=== PATIENT | male | born 1965 | race Hispanic/Latino ===

== ENCOUNTER 2019-01-12 01:13 | Inpatient (IN) | payer OTHER ==
[~2019-01-12] VITALS: Ht 185.4 cm; Wt 94.5 kg
[2019-01-12] VITALS (13 sets, daily range): BP systolic 125–154; BP diastolic 73–87
--- NOTE | 2019-01-12 01:30 | NUR ---
PATIENT ARRIVED BY EMS ON STRETCHER. PATIENT DENIES ANY COMPLAINTS OF PAIN OR DISCOMFORT AT PRESENT. BABAK LAUGHLIN BOTTOMING ROOM INSPECTOR PAGED TO ADVISE OF PATIENT' ARRIVAL. PATIENT ORIENTATED TO ROOM AND CALL PAUL. PATIENT DENIES TAKING ANY HOME MEDICATIONS. PATIENT ADVISED OF NPO STATUS AND VERBALIZED UNDERSTANDING. PATIENT TO BE PREPPED FOR PROCEDURE 01/12/2019 0140-BABAK LAUGHLIN BOTTOMING ROOM INSPECTOR RETURNED CALL, NO ORDERS AT PRESENT, WILL COME TO SEE PATIENT
[2019-01-12] MEDS ORDERED: ONDANSETRON HCL 4 MG/2 ML VIAL IV PRN (03:00)
[2019-01-12] MEDS ORDERED: NITROGLYCERIN 1GM/1 INCH PACKET TD SCH (03:00)
[2019-01-12] MEDS ORDERED: MORPHINE SULFATE 4 MG/1ML SYG IV PRN (03:00)
[2019-01-12] MEDS ORDERED: ACETAMINOPHEN 325 MG TAB PO PRN ×2 (03:00)
[2019-01-12] MEDS ORDERED: NITROGLYCERIN 1GM/1 INCH PACKET TD ONE (03:09)
[2019-01-12 06:02] LABS: INR 1.02 (0.85-1.15); PARTIAL THROMBOPLASTIN TIME 33.8 SEC (26.3-35.5); PROTHROMBIN TIME 10.7 SEC (9.6-11.6)
[2019-01-12 06:14] LABS: ALBUMIN 3.5 g/dL (3.5-5.0); BILIRUBIN,TOTAL 0.4 mg/dL (0.2-1.0); TOTAL PROTEIN, SERUM 7.1 g/dL (6.0-8.3)
--- NOTE | 2019-01-12 06:21 | NUR ---
DR YUNG HERE, AWARE OF PATIENT CONSULT.
--- NOTE | 2019-01-12 06:22 | NUR ---
TROPONIN LEVEL 6.09 DR. MARTINEZ MOBILE PHONE SALESPERSON, REQUESTED CALL BACK.
[2019-01-12] MEDS ORDERED: SODIUM CHLORIDE 0.9% 500ML 500 ML IV SCH (06:40)
[2019-01-12 06:49] LABS: HEMATOCRIT 44.1 % (42-54); MEAN CORPUSCULAR HEMOGLOBIN 28.2 pg (27.0-33.0); MEAN CORPUSCULAR VOLUME 85.4 fL (79-99); PLATELET COUNT (AUTO) 232 K/uL (130-400); RED BLOOD CELL COUNT(AUTO) 5.16 MIL/uL (4.50-6.20); RED CELL DISTRIBUTION WIDTH 14.6 % (11.0-15.5); WHITE BLOOD COUNT (AUTO) 16.1 K/uL (4.8-10.8)
--- NOTE | 2019-01-12 06:54 | NUR ---
DR. MARTINEZ RETURNED CALL, INFORMED OF TROPONIN LEVEL, NO ORDERS RECEIVED AT THIS TIME.
--- NOTE | 2019-01-12 07:45 | NUR ---
AM ASSESSMENT PT LAYING IN BED, HOB ELEVATED 30 DEGREES, SPEAKING ON CELL PHONE W/DAUGHTER. A/O X 3. NO SOB. NO DISTRESS NOTED. DENIES CHEST PAIN OR DISCOMFORT. DENIES PALPITATIONS. TELE: SR 90s. DENIES N/V AND/OR DIARRHEA. NPO STATUS REINFORCED. PT TO HAVE LHC TO DAY BY DR CHILEL. LAISHA W/JIHAN. INSTRUCTED TO CALL FOR ASSISTANCE. CALL BEVERLY W/IN REACH.
[2019-01-12] MEDS ORDERED: BIVALIRUDIN 250 MG/VIAL IV ONE (08:44)
[2019-01-12] MEDS ORDERED: HEPARIN SODIUM 1000UNIT/ML 10ML VIAL ONE (08:44)
[2019-01-12] MEDS ORDERED: LIDOCAINE HCL 1% 20 ML VIAL ONE (08:44)
[2019-01-12] MEDS ORDERED: IOHEXOL-350 50ML VIAL IV ONE (08:45)
[2019-01-12] MEDS ORDERED: IOHEXOL 350 MG/ML 100ML INFUS..BTL IV ONE ×2 (08:45→10:03)
[2019-01-12] MEDS ORDERED: NITROGLYCERIN 5 MG/ML 10 ML VIAL IV ONE (08:45)
[2019-01-12] MEDS ORDERED: ASPIRIN 325 MG TABLET PO SCH ×2 (09:00)
[2019-01-12] MEDS ORDERED: FAMOTIDINE/PF 20 MG/2 ML VIAL IV SCH (09:00)
[2019-01-12] MEDS ORDERED: LIDOCAINE HCL 2% 20ML ONE (09:08)
[2019-01-12] MEDS ORDERED: TICAGRELOR 90 MG TABLET ONE (10:45)
[2019-01-12] MEDS ORDERED: ASPIRIN 325MG EC TAB 325 MG TABLET.DR PO ONE (10:45)
[2019-01-12] MEDS ORDERED: FENTANYL CITRATE PF 50 MCG/1 ML 2ML VIAL ONE (10:46)
[2019-01-12] MEDS ORDERED: SODIUM CHLORIDE 0.9% 1000ML 1,000 ML IV SCH (11:05)
[2019-01-12] MEDS ORDERED: LABETALOL 20 MG/4 ML DISP.SYRIN IV ONE (11:05)
[2019-01-12] MEDS ORDERED: NITROGLYCERIN 50 MG/D5% WATER 1 BOT IV PRN (11:15)
--- NOTE | 2019-01-12 11:55 | NUR ---
STATUS PT RECEIVED FROM CONGRESSIONAL REPRESENTATIVE VIA BED; S/P LHC W/STENT X [address] CHILEL[address] RT GROIN PER CLOSE; DSG DRY & INTACT. PUNCTURE SITE SIFT, NON-TENDER. NO BLEEDING, NO HEMATOMA NOTED. DENIES INCISIONAL PAIN. (+) STRONG BILATERAL PEDAL PULES. BLE PINK & WARM TO TOUCH. PT INFORMED TO MAINTAIN BEDREST X 2 HRS. BEDREST ORDER CLARIFIED W/DR CHILEL. BED @ LOWEST LEVEL. SIDE RAILS X 4. INSTRUCTED TO CALL FOR ASSISTANCE. CALL BEVERLY W/IN REACH.
[2019-01-12 12:22] LABS: AMPHET/METH SCREEN,URINE NEGATIVE (NEGATIVE); BARBITURATE SCREEN, URINE NEGATIVE (NEGATIVE); BENZODIAZEPINES SCREEN,URINE NEGATIVE (NEGATIVE); CANNABINOID SCREEN,URINE NEGATIVE (NEGATIVE); COCAINE SCREEN,URINE NEGATIVE (NEGATIVE); OPIATE SCREEN,URINE NEGATIVE (NEGATIVE); PHENCYCLIDINE SCREEN,URINE NEGATIVE (NEGATIVE)
[2019-01-12] MEDS: METOPROLOL TARTRATE 25 MG TAB PO SCH ×2 (13:28→22:11)
[2019-01-12] MEDS: NITROGLYCERIN 1GM/1 INCH PACKET TD SCH ×2 (13:29→22:10)
--- NOTE | 2019-01-12 14:00 | NUR ---
STATUS BEDREST COMPLETE. RT GROIN DSG DRY & INTACT. PUNCTURE SOFT, NON-TENDER. NO BLEEDING, NO HEMATOMA NOTED. (+) STRONG PEDAL PULSES BILATERALLY. BLE PINK & WARM TO TOUCH. PT ASSISTED TO SIT-UP IN BED. DENIES DIZZINESS AND OR LIGHT-HEADEDNESS. INSTRUCTED TO CALL FOR ASSISTANCE. CALL BEVERLY W/IN REACH.
[2019-01-12] MEDS ORDERED: WARFARIN SODIUM 2.5 MG TAB PO SCH (16:00)
--- NOTE | 2019-01-12 16:06 | NUR ---
DC PLAN VISITED WITH PATIENT. PATIENT LIVES WITH DTR AND AUNT. INDEPENDENT ABLE TO PERFORM ADL'S. PATIENT HAS NO SERVICES OR DME'S. FEELS SAFE TO RETURN HOME. BICYCLE ASSEMBLER FROM [facility]. Addendum: 01/12/19 at 1608 by NEYMAR RAGSDALE RN CM Amended: Links added.
[2019-01-12] MEDS ORDERED: ATORVASTATIN CALCIUM 10 MG TABLET PO SCH (21:00)
[2019-01-12] MEDS: TICAGRELOR 90 MG TABLET PO SCH (22:11)
--- NOTE | 2019-01-13 01:20 | NUR ---
PRODUCTION FLOATER CALLED BY CHIEF LIBRARIAN BRANCH TO CHECK PATIENT LEADS, PATIENT FOUND TO BE DIAPHORETIC, DENIES ANY COMPLAINTS OF PAIN OR DISCOMFORT. VITAL SIGNS NOTED IN COMPUTER. BLOOD SUGAR OBTAINED, RESULTED 117. CONTINUE SINUS RHYTHM, RATE 77. EKG OBTAINED, SHOWING NO CHANGES FROM PREVIOUS EKG. RT GROIN SITE CONTINUE TO APPEAR SOFT TO PALPATION. COMMERCIAL REAL ESTATE ATTORNEY AWARE OF PATIENT FINDINGS. 0130-CALLED PLACED TO MARKETING TRAFFIC MANAGER ON DUTY. 0135-BABAK LAUGHLIN MARKETING TRAFFIC MANAGER RETURNED CALL, INFORMED OF PATIENT FINDINGS, NO ORDERS RECEIVED AT THIS TIME.
[2019-01-13 01:35] VITALS: BP 131/67
[2019-01-13 03:48] VITALS: BP 137/57
[2019-01-13 04:04] LABS: HEMATOCRIT 41.8 % (42-54); MEAN CORPUSCULAR HEMOGLOBIN 28.3 pg (27.0-33.0); MEAN CORPUSCULAR HGB CONC 33.4 g/dL (32.0-36.0); MEAN CORPUSCULAR VOLUME 84.6 fL (79-99); PLATELET COUNT (AUTO) 216 K/uL (130-400); RED BLOOD CELL COUNT(AUTO) 4.94 MIL/uL (4.50-6.20); RED CELL DISTRIBUTION WIDTH 14.7 % (11.0-15.5); WHITE BLOOD COUNT (AUTO) 14.3 K/uL (4.8-10.8)
[2019-01-13 05:10] LABS: POTASSIUM 3.6 mmol/L (3.5-5.1)
[2019-01-13 05:22] LABS: TROPONIN I 5.11 ng/mL (0.00-0.06)
[2019-01-13] MEDS: NITROGLYCERIN 1GM/1 INCH PACKET TD SCH (05:50)
--- NOTE | 2019-01-13 07:30 | NUR ---
AM ASSESSMENT PT LAYING IN BED, HOB ELEVATED 30 DEGREES, RESTING. A/O X 3. NO SOB. NO DISTRESS NOTED. DENIES CHEST PAIN OR DISCOMFORT. DENIES PALPITATIONS. DENIES INCISIONAL PAIN. TELE: SR 70s. DENIES N/V AND/OR DIARRHEA. RT GROIN DSG DRY & INTACT. PUNCTURES SOFT, NON-TENDER. DSG REMOVED. GARY BLEEDING, NO HEMATOMA. (+) STRONG PEDAL PULSES BILATERALLY. BLE PINK & WARM TO TOUCH. UP AD FAROOQ. INSTRUCTED TO CALL FOR ASSISTANCE. CALL BEVERLY W/IN REACH.
[2019-01-13 07:34] VITALS: BP 147/72
[2019-01-13] MEDS: METOPROLOL TARTRATE 25 MG TAB PO SCH (08:08)
[2019-01-13] MEDS: TICAGRELOR 90 MG TABLET PO SCH (08:08)
[2019-01-13] MEDS ORDERED: ASPIRIN 81MG TAB.CHEW PO SCH (09:00)
[2019-01-13] MEDS ORDERED: PANTOPRAZOLE SODIUM 40 MG TABLET.DR PO SCH (09:00)
[2019-01-13 11:30] VITALS: BP 121/74
[2019-01-13] MEDS ORDERED: ATOR10 PO (11:52)
[2019-01-13] MEDS ORDERED: ASPI-1005 PO (11:52)
[2019-01-13] MEDS ORDERED: TICA90TA PO (11:52)
[2019-01-13] MEDS ORDERED: METO25 PO (11:52)
--- NOTE | 2019-01-13 14:20 | NUR ---
DISCHARGE VERBAL & WRITTEN DISCHARGE INSTRUCTIONS REVIEWED & GIVEN TO PT. QUESTIONS ENCOURAGED & CLARIFIED. PROPER CARE & ACTIVITY AFTER C W/STENT PLACEMENT REVIEWED. NEW PRESCRIBED MEDICATIONS REVIEWED. PRESCRIPTION GIVEN TO PT;SIGNED COPY PLACED IN CHART. REINFORCED IMPORTANCE OF F/U W/TECHNICAL SOLUTION ARCHITECT WHEN PT RETURNS HOE TO [place]. STATES UNDERSTANDING. COPIES OF CARDIAC DIAGRAMS (3) GIVEN TO PT. COPIES GIVEN EARLIER TO PT BY DR YUNG ALSO. IMPLANT CARD GIVEN TO PT BY DR YUNG EARLIER TODAY. TELE BROOK REMOVED. IV DISCONTINUED. PT TO GATHER PERSONAL BELONGINGS. WILL NOTIFY STAFF WHEN FAMILY FRIENDS ARRIVE TO TAKE PT HOME. PT TO FLY BACK HOME TO [place], [place] ON FRIDAY.
--- NOTE | 2019-01-13 15:05 | NUR ---
DISCHARGE FAMILY FRIENDS HERE TO TAKE PT HOME. PT TAKEN TO PRIVATE VEHICLE VIA WC BY Wu KELLY PCP. NO DISTRESS NOTED.
== END 2019-01-13 15:05 | disposition home or self-care (01) | DRG 247 ==
LOC: 2DH 01:34 → OBSVTOIN 01:34
PROVIDERS: ADMIT Internal Medicine; ATTEND Internal Medicine
PROC: 4A023N7 Measurement of Cardiac Sampling and Pressure, Left Heart, Percutaneous Approach (ICD-10-PCS; principal; 2019-01-12)
PROC: 0271366 Dilation of Coronary Artery, Two Arteries, Bifurcation, with Three Drug-eluting Intraluminal Devices, Percutaneous Approach (ICD-10-PCS; 2019-01-12)
PROC: B2111ZZ Fluoroscopy of Multiple Coronary Arteries using Low Osmolar Contrast (ICD-10-PCS; 2019-01-12)
PROC: B2151ZZ Fluoroscopy of Left Heart using Low Osmolar Contrast (ICD-10-PCS; 2019-01-12)
DX: I21.4 Non-ST elevation (NSTEMI) myocardial infarction (principal); I20.0 Unstable angina; F17.210 Nicotine dependence, cigarettes, uncomplicated; Z83.3 Family history of diabetes mellitus; Z80.9 Family history of malignant neoplasm, unspecified; Z82.49 Family history of ischemic heart disease and other diseases of the circulatory system
CPT/HCPCS: 36415; 80048; 80053; 80061; 80305; 82550; 82948; 83874; 84484; 85027; 85610; 85730; 93005; 93458; C1725; C1760; C1769; C1887; C1894; C9600; G0378; J0583; J1644; J3010; J3490; J7030; Q9967